=== PATIENT | female | born 1995 | race Caucasian/White ===

== ENCOUNTER → 2018-08-21 | Day surgery (SDC) | payer OTHER ==
[~2018-08-21] MED LIST: ADDERALL 20 MG20 MG PO; AUGMENTIN; BELLADONNA/OPIUM 30 MG SUPP RC ONE; BOTULINUM TOXIN TYPE A 100 UNIT VIAL IM ONE; CEFTRIAXONE SOD 1 GM/NS 50 ML 50 ML IV ONE; DEXAMETHASONE SOD PHOS INJ 4 MG/ML VIAL ONE; FENTANYL CITRATE/PF 100MCG/2 ML INJ ONE; KETOROLAC TROMETHAMINE 30 MG/ML VIAL ONE; LIDOCAINE HCL 2% LOCAL INJ 5 ML SDV VIAL INJ ONE; MELATONIN PO; MIDAZOLAM HCL 2 MG/2 ML VIAL ONE; ONDANSETRON HCL INJ 2MG/ML 2ML 2 MG/ML VIAL ONE; PROPOFOL IV EMULSION 10 MG/ML 20 ML VIAL ONE; SEVOFLURANE INHAL SOLN 250 ML PEN BTL ONE; TRAZODONE HCL50 MG PO
--- OUTSIDE RECORDS SUMMARY | 2018-08-21 10:14 | XMS REPORT | Continuity of Care Document ---
Author Author [facility] Address Unknown Phone Unavailable Problems Problem Status Onset Date Classification Date Reported Comments Source Body mass index 25-29 - overweight 05/26/2018 Diagnosis 05/26/2018 [facility] Feeling feverish 05/26/2018 Diagnosis 05/26/2018 [facility] Acute pharyngitis 05/26/2018 Diagnosis 05/26/2018 [facility] Acute upper respiratory infection 05/26/2018 Diagnosis 05/26/2018 [facility] Acute sinusitis 05/26/2018 Diagnosis 05/26/2018 [facility] Immunization 2015 Diagnosis 2015 [facility] Counseling 2015 Diagnosis 2015 [facility] Medications Medication Details Route Status Patient Instructions Ordering Provider Order Date Source 24 HR Amphetamine aspartate 5 MG / Amphetamine Sulfate 5 MG / Dextroamphetamine saccharate 5 MG / Dextroamphetamine Sulfate 5 MG Extended Release Oral Capsule [Adderall] Adderall XR 20 mg capsule,extended release TK 2 CS PO QAM Active [facility] Amitriptyline Hydrochloride 10 MG Oral Tablet amitriptyline 10 mg tablet TK 1 T PO QD Active [facility] Amoxicillin 875 MG / Clavulanate 125 MG Oral Tablet [Augmentin] Augmentin 875 mg-125 mg tablet Take 1 tablet every 12 hours by oral route for 7 days. Active [facility] Fluticasone propionate 0.05 MG/ACTUAT Metered Dose Nasal [place] fluticasone 50 mcg/actuation nasal spray,suspension [place] 1 spray twice a day by intranasal route for 14 days. Active [facility] Imipramine Hydrochloride 25 MG Oral Tablet imipramine 25 mg tablet TK 1 T PO QHS Active [facility] montelukast 10 MG Oral Tablet montelukast 10 mg tablet Active [facility] benzonatate 100 MG Oral Capsule [Tessalon Perles] Tessalon Perles 100 mg capsule Take 1 capsule 3 times a day by oral route as needed. Active [facility] Trazodone Hydrochloride 100 MG Oral Tablet trazodone 100 mg tablet TK 1/2 TO 4 TS PO QHS Active [facility] Azithromycin 250 MG Oral Tablet azithromycin 250 mg tablet Active [facility] Brompheniramine Maleate 0.4 MG/ML / Dextromethorphan Hydrobromide 2 MG/ML / Pseudoephedrine Hydrochloride 6 MG/ML Oral Solution yhkpyjelsmauotu-upgrixravhuxwux-KH 2 mg-30 mg-10 mg/5 mL syrup TK 10ML PO Q 6 H PRF CNC Active [facility] Fluticasone propionate 0.05 MG/ACTUAT Nasal Inhaler fluticasone 50 mcg/actuation nasal spray,suspension U 2 SPRAYS IEN ONCE D Active [facility] Allergies, Adverse Reactions, Alerts Substance Category Reaction Severity Reaction type Status Date Reported Comments Source Immunizations Immunization Date Given Site Status Last Updated Comments Source meningococcal MCV4P 2015 completed [facility] Results Order Name Results Value Reference Range Date Interpretation Comments Source Influenza A negative 05/25/2018 [facility] Influenza B negative 05/25/2018 [facility] RESULT negative 05/25/2018 [facility] SWAB LOCATION Left and Right tonsillar pillars 05/25/2018 [facility] Vital Signs Vital Sign Value Date Comments Source Diastolic (mm Hg) 60 05/25/2018 [facility] Height 68 05/25/2018 [facility] Systolic (mm Hg) 110 05/25/2018 [facility] Weight 177 05/25/2018 [facility] Height 69 2015 [facility] Weight 165 2015 [facility] Encounters Location Location Details Encounter Type Encounter Number Reason For Visit Attending Provider ADM Date DC Date Status Source [place] - [facility] - [id number] Johnson: [address] [place] [address], Ph. [id number] Katherine Zuniga 2015 [facility] [place] - [facility] - [id number] Guillen-C: [address] [place] [address], Ph. [id number] Ryann Patino 05/25/2018 [facility] Procedures Procedure Code Date Perfomer Comments Source Tonsillectomy [facility]
--- OUTSIDE RECORDS SUMMARY | 2018-08-21 10:14 | XMS REPORT | Encounter Summary ---
Author Organization Unknown Address [address] [place] [address] Phone [phone] Care Team Providers Care Neighborhood Worker Name Role Phone Javan Gamble 3 [phone] Reason for Visit Medical Complaint Instructions 1. Acute sinusitis sinusitis: care instructions fluticasone 50 mcg/actuation nasal spray,suspension Augmentin 875 mg-125 mg tablet 2. Acute upper respiratory infection upper respiratory infection (cold): care instructions Tessalon Perles 100 mg capsule 3. Acute pharyngitis rapid strep group A, throat 4. Feeling feverish rapid flu (A+B) 5. Body mass index 25-29 - overweight A healthy lifestyle: care instructions Discussion Note: None recorded. Plan of Care Patient Instructions Over the counter management: Analgesics- NSAIDs/acetaminophen for pain and fever relief as needed Saline irrigation- mecanical irrigation to improve comfort Nasal glucocorticoid- decreases mucosal inflammation that allows improved sinus drainage Oral decongestants- may be useful when eustachian tube dysfunction is a factor. Antihistamines- may provide symptom relief due to drying effect. Reminders Provider Appointments None recorded. Lab Rapid Strep Group a, Throat 05/25/2018 [facility] Rapid Flu (A+B) 05/25/2018 [facility] Referral None recorded. Procedures None recorded. Surgeries None recorded. Imaging None recorded. Medications Name Start Date Adderall XR 20 mg capsule,extended release TK 2 CS PO QAM amitriptyline 10 mg tablet TK 1 T PO QD Augmentin 875 mg-125 mg tablet Take 1 tablet every 12 hours by oral route for 7 days. fluticasone 50 mcg/actuation nasal spray,suspension [place] 1 spray twice a day by intranasal route for 14 days. imipramine 25 mg tablet TK 1 T PO QHS montelukast 10 mg tablet Tessalon Perles 100 mg capsule Take 1 capsule 3 times a day by oral route as needed. trazodone 100 mg tablet TK 1/2 TO 4 TS PO QHS Medications Administered None recorded. Vitals Height Weight BMI Blood Pressure 5 ft 8 in 177 lbs 26.9 kg/m2 110/60 mm[Hg] Lab Results Date Name Specimen Result Interpretation Description Value Range Status Address Rapid Flu (A+B) Influenza a negative [facility]: [address] [facility] Influenza B negative [facility]: [address] [facility] Rapid Strep Group a, Throat Result negative [facility]: [facility] Swab Location Left and Right tonsillar pillars [facility]: [facility] Allergies Code Code System Name Reaction Severity Status Onset NKDA Problems No Known Problems Procedures Date Name Performed by Tonsillectomy Information not available Vaccine List Vaccine Type meningococcal MCV4P 11/25/20150.5 mL Social History Smoking Status Never Smoker Past Encounters 05/25/2018 Acute Sinusitis; Acute Upper Respiratory Infection; Acute Pharyngitis; Feeling Feverish; Body Mass Index 25-29 - Overweight Ryann Sukumar [employer]-C: [address] [place] [address], Ph. History of Present Illness Nxrsd-Mxpnzfvzeo-Ecuhfep Reported By: Patient HPI: Location: throat. Quality: productive cough, sore throat, nasal/sinus congestion, dry cough. Duration: 7days. Onset/Timing: gradual. Context: no sick contacts, no foreign travel, non-smoker. Modifying factors: OTC medication. Associated Symptoms: no shortness of breath, no wheezing, no change in number of pillows needed to sleep at night, no sweats, no significant weight gain, no significant weight loss, no morning cough, no sore throat, no vomiting, no diarrhea, no rash, no nausea, no fever, no muscle aches, green sputum, sweats, headache Review of Systems:ROS as noted in the HPI Review of Systems Basic Reported By: Patient Physical Exam Adult Basic, Adult Female Complete, 14-21 Yr Females Reported By: Patient Constitutional: General Appearance: healthy-appearing, well-nourished, well-developed. Level of Distress: NAD. Ambulation: ambulating normally Psychiatric: Mental Status: active and alert. Orientation: to time, to place, to person Eyes: Lids and Conjunctivae: non-injected, no discharge, no pallor Uxt-Ipgw-Jthlh-Throat: Ears: no lesions on external ear, no outer ear tenderness, EACs clear, TM opacified, middle ear fluid. Hearing: no hearing loss. Nose: no lesions on external nose, no septal deviation, no sinus tenderness, nasal obstruction, nasal discharge, nasal discharge--purulent, post nasal drip. Lips, Teeth, and Gums: no mouth or lip ulcers, no bleeding gums, normal dentition. Oropharynx: moist mucous membranes, no exudates, erythema, tonsils absent Lungs: Respiratory effort: no dyspnea, no tachypnea, no use of accessory muscles, no intercostal retractions. Auscultation: breath sounds normal Cardiovascular: Heart Auscultation: RRR, no murmurs
--- OUTSIDE RECORDS SUMMARY | 2018-08-21 10:14 | XMS REPORT | Encounter Summary ---
Author Organization Unknown Address [address] [place] [address] Phone [phone] Reason for Visit Immunization; meningitis Instructions 1. Immunization Menactra (PF) 4 mcg/0.5 mL intramuscular solution 2. Counseling Discussion Note: None recorded. Patient educational handouts: No information available. Plan of Care Patient Instructions You may get a low grade fever and soreness at the site of injection. Pleasetaketylenol(follow instructions on package) as needed for pain and fever. If any high grade fever, redness, swelling or drainage from the site, please go to ER/UC/PCP or retun the [facility]. Reminders Provider Appointments None recorded. Lab None recorded. Referral None recorded. Procedures None recorded. Surgeries None recorded. Imaging None recorded. Medications Name Start Date Adderall XR 20 mg capsule,extended release TK 2 CS PO QAM azithromycin 250 mg tablet psdfkzszsvudacy-paalzkgqleovorz-SR 2 mg-30 mg-10 mg/5 mL syrup TK 10ML PO Q 6 H PRF CNC fluticasone 50 mcg/actuation nasal spray,suspension U 2 SPRAYS IEN ONCE D montelukast 10 mg tablet Medications Administered None recorded. Vitals Height Weight BMI 5 ft 9 in 165 lbs 24.4 Lab Results None recorded. Allergies None recorded. Problems None recorded. Procedures None recorded. Vaccine List Vaccine Type meningococcal MCV4P 11/25/20150.5 mL Social History None recorded. Past Encounters 2015 Immunization; Counseling MICHAEL Funez: [address] [place] [address], Ph. History of Present Illness Immunization Reported By: Patient HPI: Immunization Request (normal) no symptoms. Immunization eligibility questions No vaccines in last month, No reaction to previous vaccines:, No Known Allergies Review of Systems Basic Reported By: Patient Physical Exam Immunization General Appearance: General: well-developed, well-nourished, no acute distress
[2018-08-21 13:30] VITALS: BP 113/69
--- NOTE | 2018-09-27 16:49 | Operative Report ---
DATE OF PROCEDURE: 08/21/2018 SURGEON: Segundo Scott MD PREOPERATIVE DIAGNOSIS: Frenquency urgency syndrome of the bladder. POSTOPERATIVE DIAGNOSIS: Frenquency urgency syndrome of the bladder. OPERATION PROCEDURE PERFORMED: Cystoscopy and intravesical injection of Botox 100 units. ANESTHESIA: General. ESTIMATED BLOOD LOSS: Minimal. INDICATIONS: Ms. Lois Cevallos is a 22-year-old woman with intractable frequency urgency, which has failed behavior modification, 3 different oral anticholinergic and antimuscarinic agents, who has had urodynamics consistent with detrusor hyperactivity, who now presents for management of this problem. PROCEDURE IN DETAIL: The patient was brought into the operating room, placed in supine position. After administration of general anesthesia, was placed in dorsal lithotomy position and prepped and draped in usual sterile fashion. Cystourethroscopy was performed using 21-German cystoscope. The anterior and posterior urethra were noted to be normal. The bladder was entered without difficulty. Upon entry into the bladder, the ureteral orifices were in normal anatomic completion and produced a clear efflux. There were no mucosal lesions identified. Using the Botox injecting needle, approximately 20 separate injections were made into the detrusor muscle transmucosally. 5 units were injected into each of these sites without difficulty. The patient tolerated this with minimal bleeding noted at the conclusion of the procedure. The needle was then retracted and the cystoscope and sheath were removed. The patient was returned into supine position with the bladder emptied. The needle and instrument count were correct at the conclusion of the case. Segundo Scott MD [facility] /[id number]
== END | disposition home or self-care (01) ==
LOC: OR 10:11
PROVIDERS: ATTEND Urology
DX: R35.0 Frequency of micturition (principal); R39.15 Urgency of urination; N20.0 Calculus of kidney; Z88.8 Allergy status to other drugs, medicaments and biological substances
CPT/HCPCS: 52287; 81025; J0587; J0696; J1100; J1885; J2001; J2250; J2405; J2704

== ENCOUNTER → 2019-04-20 | Day surgery (SDC) | payer OTHER ==
[~2019-04-20] MED LIST changes: -BELLADONNA/OPIUM 30 MG SUPP RC ONE; -BOTULINUM TOXIN TYPE A 100 UNIT VIAL IM ONE; -CEFTRIAXONE SOD 1 GM/NS 50 ML 50 ML IV ONE; -DEXAMETHASONE SOD PHOS INJ 4 MG/ML VIAL ONE; -KETOROLAC TROMETHAMINE 30 MG/ML VIAL ONE; -LIDOCAINE HCL 2% LOCAL INJ 5 ML SDV VIAL INJ ONE; +OMEPRAZOLE40 MG PO; -ONDANSETRON HCL INJ 2MG/ML 2ML 2 MG/ML VIAL ONE; +ONDANSETRON PO; -SEVOFLURANE INHAL SOLN 250 ML PEN BTL ONE
[2019-04-20 18:00] VITALS: BP 105/73
--- NOTE | 2019-04-21 02:02 | Operative Report ---
DATE OF PROCEDURE: 04/20/2019 SURGEON: Amos Helms MD PROCEDURE: Esophagogastroduodenoscopy with biopsies. INDICATIONS FOR EGD: Dyspepsia. MEDICATIONS: The patient was done under MAC, please see anesthesiologist's note. PROCEDURE IN DETAIL: With the patient in left lateral decubitus position, the flexible fiberoptic Olympus gastroscope was introduced into the esophagus under direct visualization without any difficulty. There was some patchy erythema noted in distal esophagus. The scope was then advanced with ease into the stomach traversing a small sliding hiatal hernia. Mucosa overlying the antrum and the body revealed some patchy erythema and low-grade to moderate edema. Biopsies were obtained and sent to stain for H pylori. A minute polyp was noted in the upper body and that was excised with the cold biopsy forceps. The pylorus was of normal contour and shape, was intubated with ease and the scope was advanced all the way to the second portion of the duodenum. Biopsies were obtained from the proximal second portion and duodenal bulb to rule out sprue. The scope was then withdrawn back into the stomach and retroflexed mucosa overlying the fundus and cardia appeared to be within normal limits. The scope was then straightened out and it was subsequently withdrawn. The patient tolerated the procedure well. IMPRESSION: 1. Distal esophagitis, mild. 2. Small sliding hiatal hernia. 3. Gastritis, biopsied. Biopsies sent to stain for Helicobacter pylori. 4. Gastric polyp upper body, excised with the cold biopsy forceps. 5. Rule out sprue. PLAN: Follow up histology. Initiate Protonix 40 mg one p.o. q.a.m. a.c. Amos Helms MD [facility] [place] /[id number] cc: John Gamble DO
== END | disposition home or self-care (01) ==
LOC: OR 14:33
PROVIDERS: ATTEND Internal Medicine Gastroenterology
DX: R11.2 Nausea with vomiting, unspecified (principal); R10.10 Upper abdominal pain, unspecified; R14.0 Abdominal distension (gaseous); K21.9 Gastro-esophageal reflux disease without esophagitis; K20.9 Esophagitis, unspecified; K44.9 Diaphragmatic hernia without obstruction or gangrene; K29.70 Gastritis, unspecified, without bleeding; K31.7 Polyp of stomach and duodenum; K31.89 Other diseases of stomach and duodenum; Z88.8 Allergy status to other drugs, medicaments and biological substances; Z01.812 Encounter for preprocedural laboratory examination
CPT/HCPCS: 43239; 81025; J2250; J2704; J3010

== ENCOUNTER → 2019-05-02 | Outpatient (CLI) | payer OTHER ==
[~2019-05-02] MED LIST changes: -FENTANYL CITRATE/PF 100MCG/2 ML INJ ONE; -MIDAZOLAM HCL 2 MG/2 ML VIAL ONE; -PROPOFOL IV EMULSION 10 MG/ML 20 ML VIAL ONE
--- NOTE | 2019-05-02 08:42 | Diagnostic Imaging Report ---
Abdominal ultrasound. History: Abdominal pain. Comparison: None available. Discussion: Transverse and longitudinal images of the abdomen were obtained demonstrating a liver of normal size and echogenicity measuring 12.1 cm in length. The portal vein is patent with hepatopetal flow and is within normal limits measuring 10 mm in diameter. The biliary tree is within normal limits with the common bile duct measuring 3 mm in diameter. The gallbladder is normal without evidence of stones, wall thickening, or pericholecystic fluid. The sonographic Hernández's sign was negative. The kidneys are normal in size and echogenicity bilaterally without evidence of hydronephrosis, stones, or mass. The right kidney measures 10.7 cm and the left kidney measures 11.8 cm in length. The spleen is normal in size and appearance measuring 10 cm in length. The pancreatic head and body are visualized and are normal in appearance. The abdominal aorta and IVC are within normal limits. There is no evidence of free fluid. IMPRESSION: Normal abdominal ultrasound. Signed by: Mitchel Donnelly on 05/02/2019 8:39 AM
== END ==
LOC: US 07:29
PROVIDERS: ATTEND Internal Medicine Gastroenterology
DX: R10.10 Upper abdominal pain, unspecified (principal)
CPT/HCPCS: 76700